=== PATIENT | male | born 1945 | race Two or more races ===

== ENCOUNTER 2016-05-14 03:21 | Emergency (ER) | payer MEDICARE ==
[~2016-05-14] VITALS: Ht 177.8 cm; Wt 77.1 kg
[2016-05-14 03:25] VITALS: BP 112/67
[2016-05-14 03:41] LABS: BASOPHILS % (AUTO) 1.2 % (0.0-2.0); EOSINOPHILS % (AUTO) 1.3 % (0.0-3.0); MEAN CORPUSCULAR HEMOGLOBIN 32.1 PG (27.0-31.0); MEAN CORPUSCULAR HGB CONC 33.2 G/DL (32.0-36.0); MEAN CORPUSCULAR VOLUME 97 FL (80-99); MEAN PLATELET VOLUME 7.1 FL (6.5-10.1); MONOCYTES % (AUTO) 9.8 % (1.0-10.0); NEUTROPHILS % (AUTO) 49.7 % (45.0-75.0); PLATELET COUNT 143 K/UL (150-450); RED BLOOD COUNT 4.06 M/UL (4.70-6.10); RED CELL DISTRIBUTION WIDTH 12.5 % (11.6-14.8); WHITE BLOOD COUNT 6.8 K/UL (4.8-10.8)
[2016-05-14 03:55] LABS: ALANINE AMINOTRANSFERASE 14 U/L (3-41); ALBUMIN/GLOBULIN RATIO 1.2 (1.0-2.7); ANION GAP 12 (5-15); ASPARTATE AMINO TRANSFERASE 17 U/L (5-40); CALCIUM 8.7 mg/dL (8.6-10.2); CARBON DIOXIDE 22 mEQ/L (20-30); CHLORIDE 104 mEQ/L (98-107); CREATININE 1.1 mg/dL (0.7-1.2); HEMOLYSIS 7; POTASSIUM 3.7 mEQ/L (3.4-4.9); SODIUM 138 mEQ/L (135-145); TOTAL PROTEIN 6.5 g/dL (6.6-8.7)
[2016-05-14 04:09] LABS: TROPONIN I < 0.30 ng/mL (<=0.30)
[2016-05-14 04:35] LABS: CKMB 3.9 ng/mL (< 6.7)
[2016-05-14 05:50] VITALS: BP 105/63
--- NOTE | 2016-05-14 08:04 | Emergency Room Report ---
History of Present Illness General Chief Complaint: Palpitations Source: Patient Present Illness HPI 70 YO M presents with palpitations. Patient is visiting from [place] - [facility] palps when lying down for bed. Tried to "Walk it off" outside but didnt resolve so called EMS. No assoc chest pain, SOB, diaphoresis, nausea/vomiting. Patient takes ASA daily and a statin. 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 Allergies: Coded Allergies: No Known Allergies (Unverified , 05/14/16) Patient History Past Medical History: HTN, other - HLD Past Surgical History: other - cardiac cath Pertinent Family History: none Social History: Denies: alcohol use, drug use, smoking Immunizations: UTD Reviewed Nursing Documentation: PMH: Agreed, PSxH: Agreed Nursing Documentation-PMH Past Medical History: No History, Except For Review of Systems All Other Systems: negative except mentioned in HPI Physical Exam Vital Signs Date Time Temp Pulse Resp B/P Pulse Ox O2 Delivery O2 Flow Rate FiO2 05/14/16 03:13 98.1 72 18 117/63 99 Room Air Sp02 EP Interpretation: reviewed, normal General Appearance: normal inspection, well appearing, no apparent distress, alert, GCS 15, non-toxic Head: normocephalic, atraumatic Eyes: bilateral eye EOMI, bilateral eye PERRL ENT: normal ENT inspection, hearing grossly normal, normal voice Neck: normal inspection, full range of motion, supple, no bony tend Respiratory: normal inspection, lungs clear, normal breath sounds, no respiratory distress, no retraction, no wheezing Cardiovascular #1: regular rate, rhythm, no edema Gastrointestinal: normal inspection, normal bowel sounds, non tender, soft, no guarding, no hernia Genitourinary: no CVA tenderness Musculoskeletal: normal inspection, back normal, normal range of motion, Thien' s Sign negative Neurologic: normal inspection, alert, oriented x3, responsive, beauty artist III-XII nml as tested, motor strength/tone normal, speech normal Psychiatric: normal inspection, judgement/insight normal, mood/affect normal Skin: normal inspection, normal color, no rash Medical Decision Making Diagnostic Impression: Primary Impression: Palpitations ER Course 70 YOM with palpitations. No assoc other symptoms. Cardiac cath last year. VSS. Afebrile ECG shows ST depressions and deep TWI in Leads 1, 2, AVL, V3-5 No previous ECG to compare Labs: No leuks. H&H stable. Troponin 0. CXR: Unremarkable for acute process on ED review No additional palps or chest pain while in ED I discussed with patient and my strong recommendation for patient to stay in hospital for further testing: possibly echo, repeat cath, serial troponin, stress test. Patient does not want to stay in ED or hospital for further care. States he has to go back to [place] for important meeting - will followup with PMD and/or Attorney Recruiter there. Understands risks of leaving AMA are permanent disability, cardiac arrest, OR, , stroke. He signed written AMA form and RN placed in chart. He is alert and oriented X4. Has capacity to sign out AMA. EKG Diagnostic Results Rate: normal Rhythm: NSR ST Segments: other - ST depressions with TWI in 1, 2, V3-5 ASA given to the pt in ED: No Rhythm Strip Diag. Results EP Interpretation: yes Rate: 76 Rhythm: NSR, no PVC's, no ectopy Chest X-Ray Diagnostic Results EP Interpretation: Yes Findings: no consolidation, no effusion, no acute cardiopulmonary disease Number of Views: 1 Last Vital Signs Date Time Temp Pulse Resp B/P Pulse Ox O2 Delivery O2 Flow Rate FiO2 05/14/16 05:50 98.1 63 17 105/63 99 Room Air Status: improved Disposition: AGAINST MEDICAL ADVICE Condition: Serious Referrals: NOT CHOSEN IPA/MD,REFERRING (PCP) Patient Instructions: Palpitations, [id number] Additional Instructions: - Please follow up with your doctor or organizational research consultant in the next 1-2 days - Go to nearest ER for return of symptoms or severe chest pain or shortness of breath JOCELYNE LOZA M.D. May 14, 2016 08:04
--- NOTE | 2016-05-14 10:01 | Diagnostic Imaging Report ---
Indication: PAIN Technique: One view of the chest Comparison: none Findings: The heart is borderline enlarged. Lungs and pleural spaces are clear except for atelectasis at the left lung base. Impression: Left basilar atelectasis. No acute process otherwise
--- NOTE | 2016-05-14 15:01 | Cardiology Report ---
APPROVED REPORT EKG Measurement Heart [id number] Normal sinus rhythm with sinus arrhythmia Possible Left atrial enlargement Left ventricular hypertrophy with repolarization abnormality Abnormal ECG
== END 2016-05-14 06:37 | disposition left against medical advice (07) ==
LOC: EDBD 03:21 → EMR 03:54
DX: R00.2 Palpitations (principal); I10 Essential (primary) hypertension; E78.5 Hyperlipidemia, unspecified
CPT/HCPCS: 36415; 71010; 80053; 82550; 82553; 84484; 85025; 93005; 99283